=== PATIENT | male | born 1965 | race Caucasian/White ===

== ENCOUNTER → 2017-04-21 | Outpatient (CLI) | payer OTHER ==
--- NOTE | 2017-04-21 15:15 | REP ---
LEFT KNEE, FIVE VIEWS: HISTORY: Pain. There is no acute fracture of subluxation. An osteophyte is present on the patella. The knee joint space is normal in appearance. A small suprapatellar joint effusion is present. IMPRESSION: There is no acute fracture or dislocation. Signed by Antonio Yuen MD 04/21/2017 03:18 P
== END ==
LOC: M WUC 13:52
PROVIDERS: ATTEND Physician Assistant
DX: M25.562 Pain in left knee (principal)

== ENCOUNTER 2018-09-09 09:43 | Emergency (ER) | payer BC, OTHER ==
[~2018-09-09] VITALS: Ht 193 cm; Wt 120.5 kg
[2018-09-09 10:17] LABS: VENOUS BASE EXCESS 0.3 (-2.0-2.0); VENOUS HCO3 22.9 MEQ/L (23.0-27.0); VENOUS O2 SATURATION 97.1 % (60.0-80.0); VENOUS PARTIAL PRESSURE CO2 32.1 mmHg (38.0-50.0); VENOUS PARTIAL PRESSURE O2 81.6 mmHg (30.0-50.0); VENOUS PH 7.471 UNITS (7.330-7.430); VENOUS STANDARD HCO3 24.8 MEQ/L; VENOUS TOTAL CO2 23.9 MEQ/L (24.0-28.0)
[2018-09-09 10:22] LABS: BASO % 0.3 % (0.0-1.0); EOS # 0.1 10^3/uL (0.0-0.50); EOS % 0.9 % (0.0-3.0); HEMATOCRIT 48.1 % (42.0-52.0); HEMOGLOBIN 17.1 g/dl (13.5-17.5); LYMPH # 2.4 10^3/uL (1.5-4.5); MEAN CORPUSCULAR HEMOGLOBIN 31.1 pg (27.0-33.0); MEAN CORPUSCULAR HGB CONC 35.6 g/dl (32.0-36.5); MEAN CORPUSCULAR VOLUME 87.5 fl (80.0-96.0); MONO # 0.4 10^3/uL (0.0-0.8); NEUTROPHILS # 4.7 10^3/uL (1.8-7.7); NEUTROPHILS % 62.3 % (36.0-66.0); PLATELET COUNT, AUTOMATED 231 10^3/uL (150-450); WHITE BLOOD COUNT 7.6 10^3/uL (4.0-10.0)
[2018-09-09 10:33] LABS: INR 0.96; PROTHROMBIN TIME 12.9 SECONDS (12.1-14.4)
--- NOTE | 2018-09-09 10:42 | REP ---
Portable chest x-ray: History: Dyspnea. Findings: Right hemidiaphragm shows eventration. The lungs are well inflated and otherwise clear. Pleural angles are sharp. Cardiomediastinal silhouette is unremarkable. EKG monitoring electrodes are seen. No bony abnormalities seen. Impression: No active disease. Electronically Signed by Osman Cooper MD 09/09/2018 10:33 A
[2018-09-09 10:54] LABS: ALBUMIN 3.7 GM/DL (3.2-5.2); ALT/SGPT 32 U/L (12-78); BILIRUBIN,DIRECT 0.2 MG/DL (0.0-0.2); BILIRUBIN,TOTAL 0.6 MG/DL (0.2-1.0); BLOOD UREA NITROGEN 6 MG/DL (7-18); CALCIUM LEVEL 8.7 MG/DL (8.5-10.1); CARBON DIOXIDE LEVEL 23 MEQ/L (21-32); CHLORIDE LEVEL 109 MEQ/L (98-107); CK-MB VALUE MASS < 1.0 NG/ML (<3.6); CPK CREATINE PHOSPHOKINASE 67 U/L (39-308); CREATININE FOR GFR 0.97 MG/DL (0.70-1.30); GLOMERULAR FILTRATION RATE > 60.0 (>56); GLUCOSE, FASTING 89 MG/DL (70-100); MB/CK RELATIVE INDEX 1.49 (< OR =4); NT-PRO BNP 16 PG/ML (<125); SODIUM LEVEL 138 MEQ/L (136-145); THYROID STIMULATING HORMONE 0.965 uIU/ML (0.358-3.740); TOTAL PROTEIN 6.5 GM/DL (6.4-8.2); TROPONIN I < 0.02 NG/ML (< 0.10)
[2018-09-09 10:59] LABS: D-DIMER QUANT < 270 ng/ml (<500)
[2018-09-09 11:07] LABS: INFLUENZA A AMPLIFICATION NEGATIVE (NEGATIVE); INFLUENZA B AMPLIFICATION NEGATIVE (NEGATIVE)
[2018-09-09] MEDS ORDERED: ASPI81TA85 PO (12:54)
[2018-09-09] MEDS ORDERED: ASPIRIN 81 MG CHEW TABLET PO ONE (13:00)
--- NOTE | 2018-09-09 13:37 | ECGEPIP ---
Stationary ECG Study [facility] - ED Test Date: 2018-09-09 Pat Name: NASEEM FITZGERALD Department: Room: - Gender: M Helper Driver: TC : 1965 Requested By: Tati Alvarenga Order Number: [id number] Reading MD: Joon Tamayo Measurements Intervals [place] Rate: 67 P: 61 [place]: 152 QRS: 38 QRSD: 108 T: 71 QT: 377 QTc: 398 Interpretive Statements SINUS RHYTHM WITH SINUS ARRHYTHMIA NO PRIORS FOR COMPARISON Electronically Signed On 09-09-2018 13:36:32 EST by Joon Tamayo
[2018-09-09 20:55] LABS: CK-MB VALUE MASS < 1.0 NG/ML (<3.6); CPK CREATINE PHOSPHOKINASE 59 U/L (39-308); MB/CK RELATIVE INDEX 1.69 (< OR =4); TROPONIN I < 0.02 NG/ML (< 0.10)
[2018-09-09 21:30] VITALS: BP 130/82
--- NOTE | 2018-09-11 13:49 | ECGEPIP ---
Stationary ECG Study [facility] - ED Test Date: 2018-09-09 Pat Name: NASEEM FITZGERALD Department: Room: - Gender: M [employer] Layout Person: : 1965 Requested By: Tati Alvarenga Order Number: [id number] Reading MD: Tati Alvarenga Measurements Intervals [place] Rate: 61 P: 52 IL: 159 QRS: 31 QRSD: 108 T: 66 QT: 402 QTc: 405 Interpretive Statements SINUS RHYTHM SIMILAR 09/09/18 Electronically Signed On 09-11-2018 13:49:24 EST by Tati Alvarenga
== END 2018-09-09 21:49 | disposition home or self-care (01) ==
LOC: EDBD 09:43 → M ED 09:43
DX: R06.09 Other forms of dyspnea (principal); Z82.49 Family history of ischemic heart disease and other diseases of the circulatory system; Z79.82 Long term (current) use of aspirin; F17.210 Nicotine dependence, cigarettes, uncomplicated